=== PATIENT | male | born 1975 | race Caucasian/White ===

== ENCOUNTER 2023-08-05 07:52 | Outpatient (CLI) | payer BC | END 2023-08-05 07:53 | disposition home or self-care (01) | LOC: CSHULT 07:52 | PROVIDERS: ATTEND Family Medicine | DX: K82.4 Cholesterolosis of gallbladder (principal) | CPT/HCPCS: 76700 ==

== ENCOUNTER 2024-07-09 09:00 | Outpatient (CLI) | payer BC | END 2024-07-09 09:01 | disposition home or self-care (01) | LOC: CSHULT 09:00 | PROVIDERS: ATTEND Family Medicine | DX: K82.4 Cholesterolosis of gallbladder (principal) | CPT/HCPCS: 76705 ==